=== PATIENT | male | born 1935 | race Caucasian/White ===

== ENCOUNTER 2017-05-15 13:45 | Emergency (ER) | payer BC, MEDICARE ==
[~2017-05-15] VITALS: Wt 72.0 kg
[2017-05-15 14:40] LABS: BASOPHILS % 0.4 % (0.0-2.0); EOSINOPHILS # 0.1 10^3/ul (0.0-0.5); EOSINOPHILS % 1.8 % (0.0-7.0); HEMATOCRIT 36.1 % (42.0-52.0); HEMOGLOBIN 11.9 g/dl (14.0-18.0); LYMPHOCYTES # 1.7 10^3/ul (0.8-2.9); LYMPHOCYTES % 23.3 % (15.0-51.0); MEAN CORPUSCULAR HEMOGLOBIN 31.2 pg (29.0-33.0); MEAN CORPUSCULAR VOLUME 94.5 fl (82.0-101.0); MEAN PLATELET VOLUME 10.7 fl (7.4-10.4); MONOCYTE # 0.5 10^3/ul (0.3-0.9); MONOCYTES % 6.5 % (0.0-11.0); NEUTROPHILS % 67.7 % (39.0-77.0); PLATELET COUNT 207 10^3/UL (140-415); RED BLOOD COUNT 3.82 10^6/ul (4.70-6.10); RED CELL DISTRIBUTION WIDTH 13.2 % (11.5-14.5); WHITE BLOOD COUNT 7.4 10^3/ul (4.8-10.8)
[2017-05-15 15:00] LABS: ANION GAP 13 (8-16); BLOOD UREA NITROGEN 16 mg/dl (7-20); CALCIUM 8.3 mg/dl (8.4-10.2); CARBON DIOXIDE 24 mmol/L (21-31); CHLORIDE 104 mmol/L (97-110); CREATININE 0.88 mg/dl (0.61-1.24); GLUCOSE 97 mg/dl (70-220); POTASSIUM 4.7 mmol/L (3.5-5.1); SODIUM 136 mmol/L (135-144)
--- NOTE | 2017-05-15 15:01 | RADRPT ---
PROCEDURE: XR right Wrist. CLINICAL INDICATION: Right wrist pain. TECHNIQUE: AP, lateral and oblique views of the right wrist were performed. COMPARISON: None available. FINDINGS: There is an impacted fracture of the distal radial metadiaphysis with mild dorsal angulat ion of the distal fracture fragment. There is edema within the surrounding soft tissues. No addition al acute fracture dislocation is identified. The bones are diffusely undermineralized. There is mode rate osteoarthritis of the first IP joint. IMPRESSION: 1. Impacted fracture of the distal radial metadiaphysis with mild dorsal angulation of the distal f racture fragment. 2. 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 RPTAT: HLBP .Raffi Brady MD, Date Time Electronically viewed and signed by .Raffi Brady MD, MD on 05/15/2017 15:01 .P/
--- NOTE | 2017-05-15 15:02 | RADRPT ---
PROCEDURE: X-ray Chest. CLINICAL INDICATION: Trauma. TECHNIQUE: Single view chest x-ray. COMPARISON: Exam dated [id number]. FINDINGS: There are atherosclerotic changes of the aorta. The cardiomediastinal silhouette is withi n normal limits. The lungs are clear without focal consolidation, effusion, or pneumothorax. There are no acute osseous abnormalities. IMPRESSION: 1. No acute cardiopulmonary abnormality. 2. Vascular calcifications consistent with atherosclerosis. RPTAT: HLBP .Raffi Brady MD, Date Time Electronically viewed and signed by .Raffi Brady MD, on 05/15/2017 15:02 .P/
--- NOTE | 2017-05-15 15:04 | RADRPT ---
PROCEDURE: CT Brain without contrast. CLINICAL INDICATION: Weakness and nonacute stroke TECHNIQUE: A CT of the brain was performed on a GE [employer]ed 64-slice CT scanner utilizing axial imaging from the skull base through the vertex without IV contrast. Multiplanar reformatted images were made. Images were reviewed on a PACS workstation. The CTDIvol is 44.95 mGy and the DLP is 720 .23 mGycm. One of the following 3 dose reduction techniques were used: Automated exposure control; adjustment of the mA and/or kV according to patient size; or use of iterative reconstruction technique. COMPARISON: 03/23/[address] FINDINGS: There is no intracranial hemorrhage, mass effect, or midline shift. No extra-axial fluid collection is seen. The ventricles and sulci are age appropriate. Mild diffuse volume loss is present. Subtl e decreased attenuation is present in the bilateral subcortical white matter, bilateral centrum semi ovale and bilateral periventricular white matter. Mild vascular calcifications are present of the b ilateral intracranial internal carotid arteries. The visualized scalp and calvarium are normal. The bilateral orbits are normal. The bilateral para nasal sinuses, mastoid air cells and middle ear cavities are clear. IMPRESSION: 1. No evidence of acute hemorrhage, infarcts, or acute intracranial pathology. 2. Mild chronic microvascular ischemic disease and diffuse volume loss. 3. Mild atherosclerotic vascular disease. RPTAT: HDC .Etta Mitchell MD, MD Date Time Electronically viewed and signed by .Etta Mitchell MD, MD on 05/15/2017 15:04 .C/
--- NOTE | 2017-05-15 15:08 | RADRPT ---
PROCEDURE: XR Knees. CLINICAL INDICATION: Trauma with bilateral knee pain. TECHNIQUE: 5 views of the bilateral knees are available for review. COMPARISON: None available. FINDINGS: There is no acute fracture, dislocation, or other osteoarticular abnormality. The alignm ent is normal and the soft tissues unremarkable. The osseous mineralization is within normal limits . The femoral stem of a left hip arthroplasty is partially visualized. There is moderate osteoarth ritis of the knee joints bilaterally. There is cortical thickening with associated lucency with scle rotic margins at the posterior medial distal right femoral metadiaphysis. There is a narrow zone of transition and there is no periosteal reaction. IMPRESSION: 1. Negative for acute fracture or dislocation. 2. Moderate bilateral osteoarthritis. 3. Lesion with associated cortical thickening and lucency with sclerotic margins at the medial post erior distal right fibular diaphysis. Given the degree of overlying cortical thickening, pre and po st contrast MRI is recommended for further evaluation. RPTAT: HLBP .Raffi Brady MD, MD Date Time Electronically viewed and signed by .Raffi Brady MD, on 05/15/2017 15:08 .P/
[2017-05-15 15:12] LABS: TROPONIN-I < 0.012 ng/ml (0.00-0.12)
--- NOTE | 2017-05-15 15:15 | RADRPT ---
PROCEDURE: CT facial bones CLINICAL INDICATION: Pain TECHNIQUE: A CT of the facial bones was performed on a GE 64-slice CT scanner utilizing high-resol ution axial images. Sagittal, coronal, and multiplanar reformatted images were made. Additionally, 3-D reformatted images were made. The CTDIvol is 29.50 mGy and the DLP is 592.71 mGy-cm. COMPARISON: Brain CT dated 05/15/2017 and brain MRI dated 03/25/[address] 03/23/2009 FINDINGS: The visualized scalp and calvarium are normal. The imaged portions of the brain demonstrate mild citlaly rovascular ischemic disease and diffuse volume loss. The bilateral orbits are normal.. The bilater al paranasal sinuses, mastoid air cells and middle ear cavities imaged are normal. The lee of the imaged paranasal sinuses and bilateral zygomas are intact. The bilateral pterygoid plates are inta ct. The bilateral nasal bones are intact. The imaged mandible is normal with mild flattening of th e bilateral mandibular condyles compatible with mild degenerative changes. No acute air fluid level s are present in the paranasal sinuses. The limited evaluation of the soft tissues imaged are normal . Oral hardware is present. The imaged portions of the cervical spine demonstrate degenerative changes and straightening of the imaged spine. Severe degenerative endplate and disk changes are present at the C5-6 level with dege nerative spondylosis from C2 through the imaged C6 level. The sella is normal. IMPRESSION: 1. No acute maxillofacial or orbital pathology. 2. Mild chronic microvascular ischemic disease and diffuse volume loss. 3. Degenerative spondylosis and straightening of the imaged cervical spine with severe degenerative endplate and disk changes at C5-6. RPTAT: HDC .Etta Mitchell MD, MD Date Time Electronically viewed and signed by .Etta Mitchell MD, MD on 05/15/2017 15:15 .C/
--- NOTE | 2017-05-15 15:27 | RADRPT ---
PROCEDURE: CT Cervical Spine. CLINICAL INDICATION: Pain TECHNIQUE: A CT of the cervical spine was performed on a multidetector [employer] CT scanner utilizing hig h-resolution axial imaging from the skull base through the cervical thoracic junction. Sagittal, co cristina, and multiplanar reformatted images were made. CTDI 22.24 mGy and DLP 498.73 mGy-cm. One of the following 3 dose reduction techniques were used during this CT examination: automated exp osure control; adjustment of the mA and /or kV according to patient size; or use of iterative recons truction technique COMPARISON: No relevant priors FINDINGS: There is straightening of the normal lordosis of the cervical spine. No acute fractures or traumati c subluxations are present. 2 mm anterior subluxation of C7 on T1 is noted. Degenerative spondylos is/degenerative enthesopathy is present from the C2 through image C7 levels. Preservation of verte bral body heights are noted. The intervertebral discs demonstrate moderate disk space height loss a t C3-4 and C4-5 and severe at C5-6 and C6-7. Mild disk space height loss is present at C7-T1. The l imited evaluation of the soft tissues of the neck demonstrate mild vascular calcifications of the bi lateral internal carotid arteries. The lung apices are clear. The posterior elements are intact an d well aligned. The specific axial levels are as follows: Occiput to C2: The visualized posterior fossa, skull base and bilateral mastoid air cells and middl e ear cavities are clear. Atlantoaxial degenerative changes are present without evidence for signif icant pathology or stenosis of the canal. C2-3: The intervertebral disk is normal. A mild 2 mm osteophytic bar and bulge is present. Left g reater than right uncovertebral osteoarthropathy and facet arthropathy is present. The central sheeba l and bilateral subarticular recesses are patent. Moderate left neural foraminal stenosis is presen t. Recommend correlation with a left C3 radiculopathy. C3-4: Moderate disk space height loss is present with a moderate osteophytic bar and bulge which me asures 3 mm. Left greater than right uncovertebral osteophytes and facet arthropathy is present. A P canal dimension is 7.5 mm. This results in a moderate central canal stenosis, bilateral subarticu lar recess stenosis and moderate bilateral neural foraminal stenosis. Recommend correlation with a b ilateral C4 radiculopathy. C4-5: Moderate disk space height loss is present. An eccentric disk osteophyte complex is noted to the right measuring 4 mm. Right greater than left uncovertebral osteophyte and facet arthropathy i s present. AP canal dimension is 8.5 mm. This results in a mild central canal stenosis with right greater than left mild subarticular recess stenosis. Severe right and mild left neural foraminal st enosis is present. Recommend correlation with a right greater than left C5 radiculopathy. C5-6: Severe degenerative endplate and disk space height loss and degenerative changes are noted. An eccentric 3 mm disk osteophyte complex is present to the right. Right greater than left facet an d uncovertebral osteoarthropathy is present. AP canal dimension is 7.6 mm. This results in a moder ate central, moderate right subarticular recess stenosis and severe right neural foraminal stenosis. Mild left subarticular recess stenosis and mild to moderate left neural foraminal stenosis is pres ent. Recommend correlation with a right greater than left C6 radiculopathy. C6-7: Severe degenerative endplate changes and disk space height loss is present. A 2 mm osteophyt ic bar and bulge is present with a superimposed 5 mm disk osteophyte complex noted. This contribute s to and AP canal dimension of 5.7 mm. Bilateral uncovertebral osteophytes and facet arthropathy is present. This results in a severe central canal stenosis, moderate to severe bilateral subarticula r recess stenosis and severe right greater than moderate to severe left neural foraminal stenosis. R ecommend correlation with a right greater than left C7 radiculopathy. C7-T1: 2 mm anterior subluxation is present with a 2 mm broad-based disk osteophyte complex. The c entral canal, subarticular recess and bilateral neural foramen are patent. IMPRESSION: 1. No acute fractures or traumatic subluxations. 2. Straightening of the normal cervical lordosis with trace anterior subluxation of C7 on T1. 3. Multilevel degenerative spondylosis/enthesopathy at the C2-C7 levels. 4. Multilevel broad-based disk osteophyte complexes at the C2-3 through C7-T1 levels with severe ce ntral canal stenosis at C6-7, moderate at C3-4 and C5-6 and mild at C4-5. 5. Multilevel neural foraminal stenosis at the C2-3 through C6-7 levels and correlate with respecti ve radiculopathy. 6. Multilevel degenerative facet and uncovertebral osteoarthropathy as noted above. RPTAT: HDC .Etta Mitchell MD, Date Time Electronically viewed and signed by .Etta Mitchell MD, on 05/15/2017 15:27 .C/
[2017-05-15] MEDS ORDERED: ONDA4TAB14 PO (15:32)
[2017-05-15] MEDS ORDERED: HYDR-902 PO (15:32)
--- NOTE | 2017-05-15 15:45 | ERA ---
ER Documentation Chief Complaint Date/Time DATE: 05/15/17 TIME: 15:36 Chief Complaint FACIAL ABRASION AND TOOTH GOT LOOSE. LOC NO ACTIVE BLEEDING NO NEURO DEF HPI This is an 81-year-old with a history of recurrent syncope who presents with an episode of syncope. The patient states that he has multiple episodes of syncope , one recently partially 1 week ago with inpatient hospitalization and negative workup. He is followed by a statistics manager and recently started on metoprolol. He has had Holter monitoring. He has had echocardiograms. Today his episode of syncope was very similar to episodes in the past with a mild prodrome. He fell forward hitting his face. The patient has multiple complaints including upper lip laceration avulsion of tooth #8, right wrist pain and bilateral knee pain. Patient denies any neck pain. He has mild jaw pain with opening and closing of the jaw. His tetanus is up-to-date. Pain is moderate and throbbing diffusely. ROS All systems reviewed and are negative except as per history of present illness. Medications Home Meds Active Scripts Ondansetron (Ondansetron Odt) 4 Mg Tab.rapdis, 4 MG PO Q6H Y for NAUSEA AND/OR VOMITING, #30 TAB Prov:WYATT PAGAN MD 05/15/17 Hydrocodone/Acetaminophen ([place] 10-325 Tablet) 1 Each Tablet, 1 TAB PO Q6H Y for PAIN, #12 TAB Prov:WYATT PAGAN MD 05/15/17 Allergies Allergies: Coded Allergies: No Known Allergy (Verified Allergy, Mild, 03/23/09) PMhx/Soc History of Surgery: No Anesthesia Reaction: No Hx Neurological Disorder: No Hx Respiratory Disorders: No Hx Cardiac Disorders: Yes (SYNCOPAL EPISODE D/T TACHYCARDIA) Hx Psychiatric Problems: No Hx Miscellaneous Medical Probl: No Hx Alcohol Use: No Hx Substance Use: No Hx Tobacco Use: No Smoking Status: Former smoker FmHx Family History: No diabetes Physical Exam Vitals Vital Signs Date Time Temp Pulse Resp B/P Pulse Ox O2 Delivery O2 Flow Rate FiO2 05/15/17 13:46 98.2 58 20 138/78 95 Physical Exam Airway is intact Bilateral breath sounds Strong distal pulses No obvious deficits General: Well developed, well nourished, no acute distress Head: Normocephalic, atraumatic Eyes: Pupils equally reactive, EOM intact ENT: Moist mucous membranes, tooth #8 complete avulsion, no other evidence of dental injury, normal jaw opening and closing. No midface tenderness. Abrasions to the bridge of the nose and upper lip and chin. There is a small approximate 1.5 cm laceration just on the mucosal membrane side of the vermilion border not including the vermilion border. This is very superficial and well approximated. Neck: Supple, no lymphadenopathy, No midline tenderness, deformities, step-offs to the cervical spine, full active and passive range of motion without midline pain. Respiratory: Lungs clear bilaterally, no distress, no chest wall tenderness, no crepitus Cardiovascular: RRR, no murmurs, rubs, or gallops Abdominal: Soft, non-tender, non-distended, no peritoneal signs, pelvis is stable : Deferred MSK: Soft tissue tenderness to the distal radius of the right wrist with positive snuffbox tenderness. 2+ radial ulnar pulses. Left upper extremity without bony abnormalities. Bilateral knees with abrasions without bony deformities, full active and passive range of motion. Neurovascular intact distally. Otherwise, no unilateral swelling, 5/5 strength, no midline tenderness deformities or step-offs to the thoracolumbar spine Neurologic: Alert and oriented, moving all extremities, normal speech, no focal weakness, no cerebellar signs Skin: No ecchymoses or bruising to the chest or abdomen Psych: Normal mood Result Diagram: 05/15/17 1410 05/15/17 1410 Results 24 hrs Laboratory Tests Test 05/15/17 14:10 White Blood Count 7.410^3/ul Red Blood Count 3.8210^6/ul Hemoglobin 11.9g/dl Hematocrit 36.1% Mean Corpuscular Volume 94.5fl Mean Corpuscular Hemoglobin 31.2pg Mean Corpuscular Hemoglobin Concent 33.0g/dl Red Cell Distribution Width 13.2% Platelet Count 86472^3/UL Mean Platelet Volume 10.7fl Neutrophils % 67.7% Lymphocytes % 23.3% Monocytes % 6.5% Eosinophils % 1.8% Basophils % 0.4% Nucleated Red Blood Cells % 0.0/100WBC Neutrophils # (Manual) 510^3/ul Lymphocytes # 1.710^3/ul Monocytes # 0.510^3/ul Eosinophils # 0.110^3/ul Basophils # 0.010^3/ul Nucleated Red Blood Cells # 0.010^3/ul Sodium Level 136mmol/L Potassium Level 4.7mmol/L Chloride Level 104mmol/L Carbon Dioxide Level 24mmol/L Anion Gap 13 Blood Urea Nitrogen 16mg/dl Creatinine 0.88mg/dl Glucose Level 97mg/dl Calcium Level 8.3mg/dl Troponin I < 0.012ng/ml Procedures/MDM EKG, MONITORS, & DIAGNOSTIC IMAGING: EKG: I reviewed and interpreted a 12-lead EKG. Rhythm: Normal sinus rhythm Ectopy: None Intervals: No abnormalities, normal QRS and QTC ST segments: No elevations or depressions T waves: No contiguous inversions CT brain: IMPRESSION: 1. No evidence of acute hemorrhage, infarcts, or acute intracranial pathology. 2. Mild chronic microvascular ischemic disease and diffuse volume loss. 3. Mild atherosclerotic vascular disease. CT cervical spine IMPRESSION: 1. No acute fractures or traumatic subluxations. 2. Straightening of the normal cervical lordosis with trace anterior subluxation of C7 on T1. 3. Multilevel degenerative spondylosis/enthesopathy at the C2-C7 levels. 4. Multilevel broad-based disk osteophyte complexes at the C2-3 through C7-T1 levels with severe central canal stenosis at C6-7, moderate at C3-4 and C5-6 and mild at C4-5. 5. Multilevel neural foraminal stenosis at the C2-3 through C6-7 levels and correlate with respective radiculopathy. 6. Multilevel degenerative facet and uncovertebral osteoarthropathy as noted above. CT facial bone IMPRESSION: 1. No acute maxillofacial or orbital pathology. 2. Mild chronic microvascular ischemic disease and diffuse volume loss. 3. Degenerative spondylosis and straightening of the imaged cervical spine with severe degenerative endplate and disk changes at C5-6. Chest x-ray: I reviewed and interpreted a 1 view of the chest Mediastinum: No enlargement Cardiac silhouette: No cardiomegaly Airspace: Clear lung cboos bilaterally without evidence of pneumothorax Bones: No evidence of fracture X-ray bilateral knee: I reviewed and interpreted multiple views of the x-ray Bones: No evidence of acute fracture dislocation or subluxation Soft tissue: No evidence of foreign body X-ray right wrist: I reviewed and interpreted multiple views of the x-ray Bones: Comminuted distal radius fracture Soft tissue: No evidence of foreign body Procedure: Dental replacement. The patient was verbally consented and verbalizes understanding of the risks benefits alternatives. Tooth #8 was preserved and milk from nursing staff upon arrival. The tooth was inserted into the socket. Approximately 80% to 85% full reduction of the tooth was possible. Using co- pack I was able to secure the tooth to the other teeth. The patient tolerated procedure well and there was no complication. Splint Application Note: Splint type: Volar and thumb spica Ortho-Glass Extremity: Right upper extremity Indication: Right wrist, distal radius fracture The patient was consented at bedside prior to splint application and states understanding of risks, benefits, and alternatives. The patient was neurovascularly intact prior to and status post application of the splint. The patient tolerated the procedure well and there were no complications. Laceration Note: Upper lip The patient was verbally consented prior to procedure and understands the risks , benefits, and alternatives. The patient is agreeable to procedure and has given verbal consent. Length: 1.5 cm Irrigation: Thorough irrigation was performed with pressure is normal saline Inspection: There is no evidence of deep tissue or structural injury, no evidence of foreign bodies Anesthesia: None Repair: Dermabond repair with excellent approximation A clean dressing was applied. The patient tolerated the procedure well with no complications. LAB INTERPRETATION: Negative troponin MEDICAL DECISION MAKING: The patient presents with a syncopal episode. Regarding the patient's syncope he has had thorough workups in the past and is actively being followed by statistics manager. The patient has had stress testing, echocardiogram, Holter monitoring. I do not believe his syncope today is consistent with serious cardiac event or arrhythmia. Patient has follow-up with his statistics manager and is recently started on metoprolol. The patient does have slight bradycardia but I do not believe his syncope is related to bradycardia or overmedication. For this reason and the fact that the patient had recent hospitalization for syncope I do not feel that inpatient hospitalization is necessary. The patient is an excellent historian and verbalizes close follow-up with his statistics manager. He states that this event is very similar to events in the past. From a trauma standpoint the patient will benefit from CT imaging of the head, face and cervical spine. He will also benefit from x-ray imaging of bilateral knees and wrist and chest. The patient is a dental avulsion and will benefit from replacement and close dental follow-up. ER COURSE: Diagnostic imaging reveals a comminuted right distal radius fracture. The patient is immobilized as documented above. He was offered multiple times pain medication but refused. Patient states that he may have broken his wrist recently and has been followed by an orthopedic surgeon and was nonoperative. Therefore, it is unclear if the patient's x-ray imaging is consistent with new or old fracture. I would err on the side immobilization and the patient was advised to follow-up with his orthopedic surgeon. The patient had wound care and his tetanus is up-to-date. His tooth was replaced as documented above. He requires close and prompt outpatient dental follow-up. I kept the patient and/or family informed of laboratory and diagnostic imaging results throughout the emergency room course. DISPOSITION PLAN: [] CONSULTATION: [] Departure Diagnosis: Primary Impression: Syncope Qualified Code: R55 - Syncope, unspecified syncope type Additional Impressions: Tooth avulsion Qualified Code: S03.2XXA - Tooth avulsion, initial encounter Closed fracture of right distal radius Qualified Code: S52.531A - Closed Colles' fracture of right radius, initial encounter Lip laceration Qualified Code: S01.511A - Lip laceration, initial encounter Condition: Stable Patient Instructions: Radius And Ulna Fx, No Reduction Required, Syncope, Unk Cause Referrals: TIFFANY LANDIN MD [facility] YOU HAVE RECEIVED A MEDICAL SCREENING EXAM AND THE RESULTS INDICATE THAT YOU DO NOT HAVE A CONDITION THAT REQUIRES URGENT TREATMENT IN THE EMERGENCY DEPARTMENT. FURTHER EVALUATION AND TREATMENT OF YOUR CONDITION CAN WAIT UNTIL YOU ARE SEEN IN YOUR DOCTORS OFFICE WITHIN THE NEXT 1-2 DAYS. IT IS YOUR RESPONSIBILITY TO MAKE AN APPOINTMENT FOR FOLOW-UP CARE. IF YOU HAVE A PRIMARY DOCTOR --you should call your primary doctor and schedule an appointment IF YOU DO NOT HAVE A PRIMARY DOCTOR YOU CAN CALL OUR PHYSICIAN REFERRAL HOTLINE AT IF YOU CAN NOT AFFORD TO SEE A PHYSICIAN YOU CAN CHOSE FROM THE FOLLOWING [facility] [address] [facility] [address] [facility] [facility] [address] [facility] [address] [facility] [facility] [address] [facility]. [facility] [address] [facility]. [facility] YOU HAVE RECEIVED A MEDICAL SCREENING EXAM AND THE RESULTS INDICATE THAT YOU DO NOT HAVE A CONDITION THAT REQUIRES URGENT TREATMENT IN THE EMERGENCY DEPARTMENT. FURTHER EVALUATION AND TREATMENT OF YOUR CONDITION CAN WAIT UNTIL YOU ARE SEEN IN YOUR DOCTORS OFFICE WITHIN THE NEXT 1-2 DAYS. IT IS YOUR RESPONSIBILITY TO MAKE AN APPOINTMENT FOR FOLOW-UP CARE. IF YOU HAVE A PRIMARY DOCTOR --you should call your primary doctor and schedule and appointment IF YOU DO NOT HAVE A PRIMARY DOCTOR YOU CAN CALL OUR PHYSICIAN REFERRAL HOTLINE AT . IF YOU CAN NOT AFFORD TO SEE A PHYSICIAN YOU CAN CHOSE FROM THE FOLLOWING [facility] INSTITUTIONS: [facility] [address] [place] [address] [facility] [address] [place], [place] [id number] [place] [address] [address] [place] [address] [facility] ([facility] walk in clinic) Additional Instructions: Call your primary care doctor TOMORROW for an appointment during the next 2-3 days.See the doctor sooner or return here if your condition worsens before your appointment time. WYATT PAGAN MD May 15, 2017 15:45
[2017-05-15 16:03] VITALS: BP 164/76; PULSE 56; RESP 16
== END 2017-05-15 17:00 | disposition home or self-care (01) ==
LOC: E/R 13:45
DX: R55 Syncope and collapse (principal); S03.2XXA Dislocation of tooth, initial encounter; S52.531A Colles' fracture of right radius, initial encounter for closed fracture; S01.511A Laceration without foreign body of lip, initial encounter; W18.09XA Striking against other object with subsequent fall, initial encounter; Y92.9 Unspecified place or not applicable; Z87.891 Personal history of nicotine dependence
CPT/HCPCS: 70450; 70486; 71010; 72125; 80048; 84484; 85025; 93005